=== PATIENT | male | born 1945 | race Caucasian/White ===

== ENCOUNTER 2018-05-11 08:05 | Outpatient (CLI) | payer MEDICARE ==
--- NOTE | 2018-05-11 11:18 | MRI ---
MRI OF THE LEFT ANKLE WITHOUT IV CONTRAST: INDICATION: Left ankle injury. 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 There is a partial thickness tear involving the A chilles tendon that originates 2.5 cm from its level of attachment to the posterior calcaneus and ext ends along the anteromedial aspect of the Achilles tendon proximally 3.7 cm. The tear involves appro ximately 1/3 of the Achilles tendon thickness. There is prominent fluid in the Achilles paratenon. There is edema surrounding the ankle within the subcutaneous tissues. There is a partial-thickness s plit tear of the peroneus brevis tendon originating at the level of the lateral malleolus extending b eyond the level of the lateral retinaculum with reconstitution at the level of the lateral calcaneal head. The peroneus brevis insertion appears within normal limits. Peroneus longus is intact. The m edial flexor tendons appear intact. The extensor tendons are intact. The calcaneofibular, anterior talofibular, and posterior talofibular ligaments are intact. The syndesmotic ligaments are intact. The deep deltoid and spring ligament are intact. No osteochondral lesion is seen involving the talar dome. Enthesopathic changes off the calcaneus. Plantar fascia appears within normal limits. IMPRESSION: 1. Severe Achilles tendinosis with partial-thickness tear involving the anteromedial aspect of the t endon involving 1/3 of the tendon thickness. 2. Partial-thickness split tear of the peroneus brevis tendon. 3. Subcutaneous edema of the left ankle. POS: [facility]
== END 2018-05-11 08:06 | disposition home or self-care (01) ==
LOC: TBSIIMAG 08:05
PROVIDERS: ATTEND Orthopaedic Surgery
DX: S86.002A Unspecified injury of left Achilles tendon, initial encounter (principal); S86.012A Strain of left Achilles tendon, initial encounter; S86.312A Strain of muscle(s) and tendon(s) of peroneal muscle group at lower leg level, left leg, initial encounter

== ENCOUNTER 2018-05-16 16:06 | Outpatient (CLI) | payer MEDICARE ==
[2018-05-16 18:03] LABS: #Eosinphils 0.1 thou/uL (0.0-0.7); #Lymphocytes 1.4 thou/uL (1.20-3.40); #Monocytes 0.7 thou/uL (0.11-0.59); #Neutrophils 3.3 thou/uL (1.40-6.50); %Basophils 0.1 % (0.0-1.0); %Eosinophils 2.6 % (0.0-10.0); %Lymphocytes 26.1 % (21.0-51.0); %Monocytes 11.8 % (0.0-10.0); %Neutrophils 59.4 % (42.0-75.0); Hemoglobin 13.8 g/dL (14.0-18.0); Mean Corpuscular HGB CONC 34.5 g/dL (32.0-36.0); Mean Corpuscular Hemoglobin 31.6 pg (27.0-31.0); Mean Corpuscular Volume 91.7 fL (78.0-98.0); Mean Platelet Volume 8.2 fL (7.4-10.4); Platelet Count 174 thou/uL (130-400); RBC Distribution Width 12.2 % (11.5-14.5); Red Blood Cell (RBC) Count 4.38 mill/uL (4.70-6.10); White Blood Cell (WBC) Count 5.5 thou/uL (4.8-10.8)
[2018-05-16 18:21] LABS: Anion Gap 13 mmol/L (10-20); BUN (Urea Nitrogen) 11 mg/dL (8.4-25.7); Calc. Creatinine Clearance 0 mL/min (70-130); Calcium 9.3 mg/dL (7.8-10.44); Carbon Dioxide 24 mmol/L (23-31); Chloride 107 mmol/L (98-107); Estimated GFR-MDRD 52; Glucose 82 mg/dL (83-110); Potassium 4.3 mmol/L (3.5-5.1); Sodium 140 mmol/L (136-145)
== END 2018-05-16 16:07 | disposition home or self-care (01) ==
LOC: LABBT 16:06
PROVIDERS: ATTEND Orthopaedic Surgery
DX: Z01.818 Encounter for other preprocedural examination (principal); S86.012A Strain of left Achilles tendon, initial encounter
CPT/HCPCS: 80048; 85025; 93005; 93010

== ENCOUNTER 2023-05-12 10:53 | Outpatient (CLI) | payer MEDICARE ==
[2023-05-12 12:27] LABS: #Eosinphils 0.2 10x3/uL (0.0-0.5); #Monocytes 0.6 10x3/uL (0.0-1.1); #Neutrophils 3.1 10x3/uL (1.5-8.4); %Basophils 0.4 % (0.0-2.0); %Eosinophils 3.6 % (0.0-6.0); %Lymphocytes 21.3 % (18.0-47.0); %Monocytes 12.2 % (0.0-10.0); %Neutrophils 62.3 % (40.0-75.0); Hematocrit 40.4 % (38.8-50.0); Hemoglobin 13.6 g/dL (13.5-17.5); Mean Corpuscular HGB CONC 33.7 g/dL (32.0-36.0); Mean Corpuscular Hemoglobin 30.5 pg (27.0-33.0); Mean Corpuscular Volume 90.6 fl (81.2-95.1); Mean Platelet Volume 10.3 fl (7.4-10.4); Platelet Count 195 10x3/uL (150-450); RBC Distribution Width 12.8 % (11.5-14.5); Red Blood Cell (RBC) Count 4.46 10x6/uL (4.32-5.72)
[2023-05-12 12:46] LABS: Anion Gap 11 mmol/L (10-20); BUN (Urea Nitrogen) 12 mg/dL (8.4-25.7); Calc. Creatinine Clearance 0 mL/min (70-130); Calcium 9.2 mg/dL (7.8-10.44); Carbon Dioxide 26 mmol/L (23-31); Chloride 107 mmol/L (98-107); Estimated GFR 70; Glucose 84 mg/dL (83-110); Potassium 4.6 mmol/L (3.5-5.1); Sodium 139 mmol/L (136-145)
== END 2023-05-12 10:54 | disposition home or self-care (01) ==
LOC: LABBT 10:53
PROVIDERS: ATTEND Orthopaedic Surgery
DX: Z01.818 Encounter for other preprocedural examination (principal); S83.252A Bucket-handle tear of lateral meniscus, current injury, left knee, initial encounter
CPT/HCPCS: 80048; 85025; 93005; 93010

== ENCOUNTER 2023-05-17 06:50 | Day surgery (SDC) | payer MEDICARE ==
[2023-05-12 11:24] VITALS: BMI 28.8
[2023-05-17] MEDS ORDERED: Sodium Chloride 0.9% 100 ML ONE (10:07)
[2023-05-17] MEDS ORDERED: CEFAZOLIN 2 GM VIAL ONE (10:07)
[2023-05-17] MEDS ORDERED: PROPOFOL 200 MG/20 ML VIAL ONE (10:21)
[2023-05-17] MEDS ORDERED: Ondansetron PF 4 MG/2 ML Vial ONE ×2 (10:21→10:29)
[2023-05-17] MEDS ORDERED: Lidocaine 1% PF 5 ML VIAL ONE (10:21)
[2023-05-17] MEDS ORDERED: fentaNYL 50 mcg/mL 1 mL Vial ONE (10:29)
[2023-05-17] MEDS ORDERED: Bupivacaine PF 0.5% 30 ML VIAL ONE (10:34)
[2023-05-17] MEDS ORDERED: EPINEPHrine 1 MG/ML AMP ONE (10:35)
== END 2023-05-17 13:20 | disposition home or self-care (01) ==
LOC: SDC 06:50
PROVIDERS: ATTEND Orthopaedic Surgery
PROC: 0JCP0ZZ Extirpation of Matter from Left Lower Leg Subcutaneous Tissue and Fascia, Open Approach (ICD-10-PCS; principal; 2023-05-17)
DX: S80.252A Superficial foreign body, left knee, initial encounter (principal); M17.0 Bilateral primary osteoarthritis of knee; I10 Essential (primary) hypertension; E78.00 Pure hypercholesterolemia, unspecified; Z86.73 Personal history of transient ischemic attack (TIA), and cerebral infarction without residual deficits; Z88.2 Allergy status to sulfonamides; W34.00XA Accidental discharge from unspecified firearms or gun, initial encounter
CPT/HCPCS: J0171; J2405; J2704; J3010; J3490; L1830; S0020

== ENCOUNTER 2025-05-15 10:42 | Observation (INO) | payer MEDICARE ==
[2025-05-15 12:18] LABS: #Basophils Less than 0.03 10x3/uL (0.0-0.2); #Eosinophils 0.05 10x3/uL (0.0-0.7); #Monocytes 0.87 10x3/uL (0.11-0.59); #Neutrophils 13.47 10x3/uL (1.40-6.50); %Basophils 0.1 % (0.0-1.0); %Eosinophils 0.3 % (0.0-10.0); %Lymphocytes 4.5 % (21.0-51.0); %Monocytes 5.7 % (0.0-10.0); %Neutrophils 88.6 % (42.0-75.0); Hematocrit 26.5 % (42.0-52.0); Hemoglobin 8.6 g/dL (14.0-18.0); Mean Corpuscular Hemoglobin 30.7 pg (27.0-31.0); Mean Corpuscular Volume 94.6 fL (78.0-98.0); Platelet Count 373 10x3/uL (130-400); Red Blood Cell (RBC) Count 2.80 mill/uL (4.70-6.10); White Blood Cell (WBC) Count 15.20 10x3/uL (4.8-10.8)
[2025-05-15] MEDS ORDERED: Pantoprazole 40 MG VIAL ONE (12:33)
[2025-05-15 12:38] LABS: ALT (SGPT) 41 U/L (Less than 45); AST (SGOT) 33 U/L (11-34); Albumin 3.1 g/dL (3.1-4.5); Alkaline Phosphatase 70 U/L (40-110); Anion Gap 11 mmol/L (10-20); BUN (Urea Nitrogen) 22 mg/dL (8.4-25.7); Bilirubin, Total 0.9 mg/dL (0.3-1.2); Calc. Creatinine Clearance 0 mL/min (70-130); Calcium 8.8 mg/dL (7.8-10.44); Carbon Dioxide 26 mmol/L (23-31); Chloride 104 mmol/L (98-107); Globulin 2.9 g/dL (2.4-3.5); Glucose 85 mg/dL (83-110); Potassium 3.8 mmol/L (3.5-5.1); Sodium 137 mmol/L (136-145)
[2025-05-15] MEDS ORDERED: Ondansetron PF 4 MG/2 ML Vial IVP PRN (14:36)
[2025-05-15] MEDS ORDERED: hydrALAZINE 20 MG/ML VIAL SLOW IVP PRN (14:36)
[2025-05-15] MEDS ORDERED: Benzonatate 100 MG CAP PO PRN (14:36)
[2025-05-15] MEDS ORDERED: Acetaminophen 500 MG TAB PO PRN (14:36)
[2025-05-15 15:21] VITALS: BMI 26.6
[2025-05-15] MEDS ORDERED: GoLYTELY 4,000 ml Bottle PO SCH (18:00)
[2025-05-15] MEDS: Pantoprazole 40 MG VIAL IVP SCH (21:42)
[2025-05-15] MEDS: GoLYTELY 4,000 ml Bottle PO SCH (21:57)
[2025-05-16 05:31] LABS: #Basophils Less than 0.03 10x3/uL (0.0-0.2); #Eosinophils 0.05 10x3/uL (0.0-0.7); #Monocytes 1.01 10x3/uL (0.11-0.59); #Neutrophils 8.99 10x3/uL (1.40-6.50); %Basophils 0.1 % (0.0-1.0); %Eosinophils 0.4 % (0.0-10.0); %Lymphocytes 14.4 % (21.0-51.0); %Monocytes 8.5 % (0.0-10.0); %Neutrophils 76.0 % (42.0-75.0); Hematocrit 26.6 % (42.0-52.0); Hemoglobin 8.4 g/dL (14.0-18.0); Mean Corpuscular Hemoglobin 30.0 pg (27.0-31.0); Mean Corpuscular Volume 95.0 fL (78.0-98.0); Platelet Count 365 10x3/uL (130-400); Red Blood Cell (RBC) Count 2.80 mill/uL (4.70-6.10); White Blood Cell (WBC) Count 11.83 10x3/uL (4.8-10.8)
[2025-05-16 05:56] LABS: ALT (SGPT) 36 U/L (Less than 45); AST (SGOT) 36 U/L (11-34); Albumin 2.9 g/dL (3.1-4.5); Alkaline Phosphatase 71 U/L (40-110); Anion Gap 11 mmol/L (10-20); BUN (Urea Nitrogen) 17 mg/dL (8.4-25.7); Bilirubin, Total 1.2 mg/dL (0.3-1.2); Calc. Creatinine Clearance 79 mL/min (70-130); Calcium 8.2 mg/dL (7.8-10.44); Carbon Dioxide 27 mmol/L (23-31); Chloride 100 mmol/L (98-107); Globulin 2.6 g/dL (2.4-3.5); Glucose 86 mg/dL (83-110); Potassium 3.7 mmol/L (3.5-5.1); Sodium 134 mmol/L (136-145)
[2025-05-16] MEDS ORDERED: Fleet Saline Enema 133 ML BOT ONE (08:56)
[2025-05-16] MEDS ORDERED: LEVOBUNOLOL EA EYE SCH (09:00)
[2025-05-16] MEDS ORDERED: LEVOBUNOLOL HCL EA EYE SCH (09:00)
[2025-05-16] MEDS ORDERED: Lidocaine 1% PF 5 ML VIAL ONE (10:32)
[2025-05-16] MEDS ORDERED: PROPOFOL 20 ML ONE ×3 (10:32→11:15)
[2025-05-16] MEDS ORDERED: PHENYLEPHRINE-NS 100 MCG/ML 10 ML SYRINGE ONE (10:32)
[2025-05-16] MEDS ORDERED: NEOSTIGMINE 3 MG/3 ML SYRINGE ONE (10:32)
[2025-05-16 12:26] VITALS: BMI 26.6
[2025-05-16 12:32] VITALS: BP 132/73; TEMP 97.6
[2025-05-16] MEDS ORDERED: Non-Formulary Item 1 EACH (Latanoprost/Pf [Latanoprost 0.005% Eye Drop] 7.5 ML Drops) EA EYE SCH (21:00)
== END 2025-05-16 15:00 | disposition home or self-care (01) ==
LOC: ERS 10:42 → OBS 13:41 → SURG B 20:00
PROVIDERS: ADMIT Family Medicine; ATTEND Internal Medicine
PROC: 0D798ZZ Dilation of Duodenum, Via Natural or Artificial Opening Endoscopic (ICD-10-PCS; principal; 2025-05-16)
PROC: 0DB68ZX Excision of Stomach, Via Natural or Artificial Opening Endoscopic, Diagnostic (ICD-10-PCS; 2025-05-16)
PROC: 0DJD8ZZ Inspection of Lower Intestinal Tract, Via Natural or Artificial Opening Endoscopic (ICD-10-PCS; 2025-05-16)
DX: K57.30 Diverticulosis of large intestine without perforation or abscess without bleeding (principal); K26.9 Duodenal ulcer, unspecified as acute or chronic, without hemorrhage or perforation; K31.9 Disease of stomach and duodenum, unspecified; D62 Acute posthemorrhagic anemia; I10 Essential (primary) hypertension; E78.5 Hyperlipidemia, unspecified; Z86.73 Personal history of transient ischemic attack (TIA), and cerebral infarction without residual deficits; Z90.89 Acquired absence of other organs; Z88.2 Allergy status to sulfonamides; Z79.82 Long term (current) use of aspirin; Z79.899 Other long term (current) drug therapy
CPT/HCPCS: 43239; 43245; 45378; 80053 ×2; 85025 ×2; 86850; 86900; 86901; 96374; 99285; J2470; J2704; 36415; 88305; 88342; 96376; G0378